=== PATIENT | female | born 1940 | race Caucasian/White ===

== ENCOUNTER → 2017-02-09 | Outpatient (CLI) | payer MEDICARE, OTHER | LOC: RAD 15:10 | DX: M81.0 Age-related osteoporosis without current pathological fracture (principal); M85.88 Other specified disorders of bone density and structure, other site; M51.34 Other intervertebral disc degeneration, thoracic region | CPT/HCPCS: 72072 ==

== ENCOUNTER 2017-02-11 09:01 | Emergency (ER) | payer OTHER | END 2017-02-11 10:39 | disposition left against medical advice (07) | LOC: ER1 09:01 | DX: S00.31XA Abrasion of nose, initial encounter (principal); S00.81XA Abrasion of other part of head, initial encounter; I10 Essential (primary) hypertension; Z88.0 Allergy status to penicillin; Z79.82 Long term (current) use of aspirin; W01.0XXA Fall on same level from slipping, tripping and stumbling without subsequent striking against object, initial encounter | CPT/HCPCS: 99283 ==

== ENCOUNTER → 2017-02-11 | Outpatient (CLI) | payer MEDICARE, OTHER | LOC: KOH-I 16:28 | DX: S00.83XA Contusion of other part of head, initial encounter (principal); S00.33XA Contusion of nose, initial encounter; W10.1XXA Fall (on)(from) sidewalk curb, initial encounter; Z88.0 Allergy status to penicillin | CPT/HCPCS: 70450; 72050 ==

== ENCOUNTER → 2021-05-24 | Outpatient (CLI) | payer MEDICARE, OTHER | LOC: RT 09:20 | DX: Z01.810 Encounter for preprocedural cardiovascular examination (principal) | CPT/HCPCS: 93005 ==

== ENCOUNTER 2022-02-28 18:51 | Emergency (ER) | payer MEDICARE, OTHER | END 2022-03-01 04:45 | disposition short-term general hospital (02) | LOC: ER1 18:51 | DX: S62.242B Displaced fracture of shaft of first metacarpal bone, left hand, initial encounter for open fracture (principal); S61.452A Open bite of left hand, initial encounter; Z88.6 Allergy status to analgesic agent; Z88.1 Allergy status to other antibiotic agents; Z85.3 Personal history of malignant neoplasm of breast; Z23 Encounter for immunization; W54.0XXA Bitten by dog, initial encounter; Y92.009 Unspecified place in unspecified non-institutional (private) residence as the place of occurrence of the external cause | CPT/HCPCS: 73130; 90471; 90715; 96374; 96375; 96376; 99284; J0295; J2270; J2405 ==

== ENCOUNTER → 2022-08-05 | Outpatient (CLI) | payer MEDICARE, OTHER | LOC: RAD 16:18 | DX: M54.50 Low back pain, unspecified (principal) | CPT/HCPCS: 72100 ==